=== PATIENT | male | born 1985 | race Caucasian/White ===

== ENCOUNTER 2016-04-10 09:05 | Emergency (ER) | payer SELFPAY ==
[2016-04-10 09:17] VITALS: BP 133/84
[2016-04-10] MEDS ORDERED: NEOMY SULF/POLYMYX B SULF/HC OTIC SUSP 10 ML AU ONE (09:39)
[2016-04-10] MEDS ORDERED: DEXAMETHASONE 4 MG TABLET PO ONE (09:40)
[2016-04-10] MEDS ORDERED: ALBUTEROL SULFATE HFA (90 MCG/PUFF) 8 GM MDI (1 MDI/ER DISP) IH ONE (09:40)
--- NOTE | 2016-04-10 09:43 | ER Document Report ---
ED General - General Chief Complaint: Drainage from Ear Stated Complaint: EAR PAIN TRAVEL OUTSIDE OF THE [place] IN LAST 30 DAYS: No - HPI Patient complains to provider of: bilateral ear drainage Notes: Patient coming in for evaluation of bilateral ear drainage ongoing for last 3-4 days. Patient denies any history swimming or submerging his head. Patient denies fevers chills nausea vomiting sore throat. Patient denies any recent antibiotic use denies any ear canal trauma denies using Q-tips states he has been putting peroxide in his ears. - Related Data Allergies/Adverse Reactions: cefaclor [From Ceclor] Allergy (Verified 04/10/16 09:14) Past Medical History - Social History Smoking Status: Current Every Day Smoker Chew tobacco use (# tins/day): No Frequency of alcohol use: None Drug Abuse: None Family History: Reviewed & Not Pertinent Patient has suicidal ideation: No Patient has homicidal ideation: No Renal/ Medical History: Denies: Hx Peritoneal Dialysis Review of Systems - Review of Systems Constitutional: No symptoms reported EENT: Ear discharge Cardiovascular: No symptoms reported Respiratory: No symptoms reported Gastrointestinal: No symptoms reported Genitourinary: No symptoms reported Male Genitourinary: No symptoms reported Musculoskeletal: No symptoms reported Skin: No symptoms reported Hematologic/Lymphatic: No symptoms reported Neurological/Psychological: No symptoms reported -: Yes All other systems reviewed and negative Physical Exam - Vital signs Vitals: Temp Pulse Resp BP Pulse Ox 98.2 F 93 18 133/84 H 99 04/10/16 09:15 04/10/16 09:15 04/10/16 09:15 04/10/16 09:15 04/10/16 09:15 Interpretation: Normal - General General appearance: Appears well, Alert - HEENT Head: Normocephalic, Atraumatic Eyes: Normal Conjunctiva: Normal Cornea: Normal Extraocular movements intact: Yes Eyelashes: Normal Pupils: PERRL Ears: Normal External canal: Other - Bilateral. No drainage Tympanic membrane: Normal Sinus: Normal Nasal: Normal Pharynx: Normal Neck: Normal - Respiratory Respiratory status: No respiratory distress Chest status: Nontender Breath sounds: Normal Chest palpation: Normal - Cardiovascular Rhythm: Regular Heart sounds: Normal auscultation Murmur: No - Abdominal Inspection: Normal Distension: No distension Bowel sounds: Normal Tenderness: Nontender Organomegaly: No organomegaly - Back Back: Normal, Nontender - Extremities General upper extremity: Normal inspection, Nontender, Normal color, Normal ROM , Normal temperature General lower extremity: Normal inspection, Nontender, Normal color, Normal ROM , Normal temperature, Normal weight bearing. No: Milton's sign - Neurological Neuro grossly intact: Yes Cognition: Normal Orientation: AAOx4 Grisel Coma Scale Eye Opening: Spontaneous Grisel Coma Scale Verbal: Oriented Grisel Coma Scale Motor: Obeys Commands [place] Coma Scale Total: 15 Speech: Normal Motor strength normal: LUE, RUE, LLE, RLE Sensory: Normal - Psychological Associated symptoms: Normal affect, Normal mood - Skin Skin Temperature: Warm Skin Moisture: Dry Skin Color: Normal Course - Re-evaluation Re-evalutation: 04/10/16 14:27 Patient presents with bilateral otitis externa. Patient will be discharged home - Vital Signs Vital signs: Temp Pulse Resp BP Pulse Ox 98.2 F 93 18 133/84 H 99 04/10/16 09:15 04/10/16 09:15 04/10/16 09:30 04/10/16 09:15 04/10/16 09:15 Discharge - Discharge Clinical Impression: Tobacco use, Wheezing Bilateral otitis externa Qualifiers: Otitis externa type: unspecified type Chronicity: acute Qualified Code(s): H60.503 - Unspecified acute noninfective otitis externa, bilateral Condition: Good Disposition: HOME, SELF-CARE Instructions: Using Ear Drops with a Wick ([facility]), Use of Ear Drops ([facility]), Otitis Externa ([facility]) Additional Instructions: Examination today is consistent with swimmer's ear are otitis externa. We will prescribe you antibiotic drops to aid in your symptoms. Please put 4 drops in each ear 3 times a day for the next 10 days. We will try to place a wick in your ear. If this falls out he may just use a cotton ball and still drops while lying on your side. Please stop smoking. Your lung examination today shows bilateral wheezes more likely due to your smoking use. The steroid that we gave you here in ER will help out with your ear pain will help out with your frontal head pain. Will also help out with your wheezing. Please use the inhaler 2 puffs every 4 hours as needed for shortness of breath and wheezing Please stop smoking Forms: Smoking Cessation Education
== END 2016-04-10 10:34 | disposition home or self-care (01) ==
LOC: ER 09:05
DX: H60.503 Unspecified acute noninfective otitis externa, bilateral (principal); R06.2 Wheezing; H92.13 Otorrhea, bilateral; F17.210 Nicotine dependence, cigarettes, uncomplicated
CPT/HCPCS: 99282; J3490 ×2

== ENCOUNTER 2016-07-26 19:32 | Emergency (ER) | payer SELFPAY ==
[2016-07-26] MEDS ORDERED: CLONIDINE 0.1 MG/24 HR PATCH.TDWK TD ONE (23:07)
[2016-07-26] MEDS ORDERED: ONDANSETRON ODT 4 MG TAB (6 TAB/DSPK) PO PRN (23:07)
[2016-07-26] MEDS ORDERED: GABAPENTIN 300 MG CAPSULE PO ONE (23:07)
--- NOTE | 2016-07-26 23:09 | ER Document Report ---
ED General - General Chief Complaint: Drug Abuse Stated Complaint: DRUG ADDICTION Time Seen by Provider: 07/26/16 21:07 Notes: Patient is a 31-year-old male no past medical history who presents seeking assistance with detox from heroin and alcohol. Last use was 24 hours ago. He denies any acute medical concerns states he is looking for assistance with withdrawal symptoms. Notes that he has had nausea, vomiting, diaphoresis, chills and frequent yawning. Nothing improves or worsens his symptoms. He has not seen a primary care doctor outpatient specialist regarding these concerns. Denies any suicidal or homicidal ideation. He has never tried to withdraw from these substances in the past. Denies any hallucinations, confusion or seizures. TRAVEL OUTSIDE OF THE [place] IN LAST 30 DAYS: No - Related Data Allergies/Adverse Reactions: [facility] Allergy (Verified 04/10/16 09:14) Past Medical History - General Information source: Patient - Social History Smoking Status: Current Every Day Smoker Frequency of alcohol use: Heavy Drug Abuse: Heroin Lives with: Spouse/Significant other Family History: Reviewed & Not Pertinent Patient has suicidal ideation: No Patient has homicidal ideation: No Renal/ Medical History: Denies: Hx Peritoneal Dialysis Review of Systems - Review of Systems Notes: Constitutional: Negative for fever. HENT: Negative for sore throat. Eyes: Negative for visual changes. Cardiovascular: Negative for chest pain. Respiratory: Negative for shortness of breath. Gastrointestinal: Negative for abdominal pain, positive for nausea and vomiting Genitourinary: Negative for dysuria. Musculoskeletal: Negative for back pain. Skin: Negative for rash. Neurological: Negative for headaches, weakness or numbness. 10 point ROS negative except as marked above and in HPI. Physical Exam - Vital signs Vitals: Temp Pulse Resp BP Pulse Ox 98.2 F 88 20 131/71 H 99 07/26/16 19:36 07/26/16 19:36 07/26/16 19:36 07/26/16 19:36 07/26/16 19:36 Interpretation: Normal Notes: PHYSICAL EXAMINATION: GENERAL: Well-appearing, well-nourished and in no acute distress. HEAD: Atraumatic, normocephalic. EYES: Pupils equal round and reactive to light, extraocular movements intact, sclera anicteric, conjunctiva are normal. ENT: nares patent, oropharynx clear without exudates. Moist mucous membranes. NECK: Normal range of motion, supple without lymphadenopathy LUNGS: Breath sounds clear to auscultation bilaterally and equal. No wheezes rales or rhonchi. HEART: Regular rate and rhythm without murmurs ABDOMEN: Soft, nontender, normoactive bowel sounds. No guarding, no rebound. No masses appreciated. EXTREMITIES: Normal range of motion, no pitting or edema. No cyanosis. NEUROLOGICAL: No focal neurological deficits. Moves all extremities spontaneously and on command. PSYCH: Normal mood, normal affect. SKIN: Warm, Dry, normal turgor, no rashes or lesions noted. Course - Re-evaluation Re-evalutation: 07/27/16 03:01 Patient presents with concerns of withdrawal symptoms of both alcohol and opiates. Vitals within normal limits, exam unremarkable. No acute life- threatening pathology suspects on today's evaluation. Will start on clonidine, gabapentin and Zofran to assist with withdrawal symptoms and have encouraged the patient to follow-up with outpatient resources for long-term management of his polysubstance abuse. At this time will discharge with return precautions and follow-up recommendations. Verbal discharge instructions given a the bedside and opportunity for questions given. Medication warnings reviewed. Patient is in agreement with this plan and has verbalized understanding of return precautions and the need for primary care follow-up in the next 24-72 hours. - Vital Signs Vital signs: Temp Pulse Resp BP Pulse Ox 98.4 F 81 18 135/69 H 99 07/26/16 23:20 07/26/16 23:20 07/26/16 23:20 07/26/16 23:20 07/26/16 23:20 Discharge - Discharge Clinical Impression: Polysubstance abuse Condition: Good Disposition: HOME, SELF-CARE Additional Instructions: Please follow-up with 1 of the provided resources as soon as possible to begin your drug rehabilitation program. Keep the clonidine patch on for the next 3 days. Remove it if you become lightheaded or have episodes refill you might pass out. Take the gabapentin 3 times daily as needed for withdrawal symptoms. You can take the Zofran as needed for nausea. Prescriptions: Gabapentin 300 mg PO TID PRN #21 capsule PRN Reason: Ondansetron [Zofran Odt 4 mg Tablet] 1 - 2 tab PO Q4H PRN #15 tab.rapdis PRN Reason: For Nausea/Vomiting
[2016-07-26 23:45] VITALS: BP 135/69
== END 2016-07-26 23:20 | disposition home or self-care (01) ==
LOC: ER 19:32
DX: F19.10 Other psychoactive substance abuse, uncomplicated (principal); R11.2 Nausea with vomiting, unspecified; F17.200 Nicotine dependence, unspecified, uncomplicated
CPT/HCPCS: 99283; J3490

== ENCOUNTER → 2016-08-14 | Outpatient (CLI) | payer SELFPAY ==
[2016-08-14 16:30] LABS: APPEARANCE,URINE CLEAR; BILIRUBIN,URINE NEGATIVE (NEGATIVE); GLUCOSE, URINE NEGATIVE (NEGATIVE); KETONES,URINE NEGATIVE (NEGATIVE); LEUKOCYTE ESTERASE,URINE NEGATIVE (NEGATIVE); NITRITE,URINE NEGATIVE (NEGATIVE); PROTEIN,URINE NEGATIVE (NEGATIVE); URINE SPECIFIC GRAVITY 1.013; UROBILINOGEN,URINE NEGATIVE mg/dL (<2.0)
[2016-08-14 16:31] LABS: ABSOLUTE LYMPHOCYTES (AUTO) 1.4 10^3/uL (0.5-4.7); ABSOLUTE MONOCYTES (AUTO) 0.4 10^3/uL (0.1-1.4); ABSOLUTE NEUT (AUTO) 7.6 10^3/uL (1.7-8.2); BASOPHILS % (AUTO) 0.2 % (0-2); EOSINOPHILS % (AUTO) 0.5 % (0-6); HEMATOCRIT 42.2 % (37.9-51.0); HEMOGLOBIN 14.3 g/dL (13.5-17.0); HGB HCT DIFFERENCE 0.7; LYMPHOCYTES % (AUTO) 15.1 % (13-45); MEAN CORPUSCULAR HEMOGLOBIN 30.2 pg (27.0-33.4); MEAN CORPUSCULAR VOLUME 89 fl (80-97); MONOCYTES % (AUTO) 4.5 % (3-13); RED BLOOD COUNT 4.75 10^6/uL (4.35-5.55); RED CELL DISTRIBUTION WIDTH 12.7 % (11.5-14.0); SEGMENTED NEUTROPHILS % (AUTO) 79.7 % (42-78); WHITE BLOOD COUNT 9.5 10^3/uL (4.0-10.5)
[2016-08-14 16:51] LABS: ALANINE AMINOTRANSFERASE 27 U/L (21-72); ALKALINE PHOSPHATASE 69 U/L (38-126); ANION GAP 14 (5-19); ASPARTATE AMINO TRANSFERASE 22 U/L (17-59); BILIRUBIN,DIRECT 0.3 mg/dL (0.0-0.4); BILIRUBIN,TOTAL 0.8 mg/dL (0.2-1.3); BLOOD UREA NITROGEN 12 mg/dL (7-20); CALCIUM 10.2 mg/dL (8.4-10.2); CARBON DIOXIDE 29 mmol/L (22-30); CHLORIDE 98 mmol/L (98-107); CHOLESTEROL 191.65 mg/dL (0-200); CREATININE RESULT 0.83 mg/dL (0.52-1.25); Direct HDL 58 mg/dL (>40); GLUCOSE 128 mg/dL (75-110); POTASSIUM 4.6 mmol/L (3.6-5.0); SODIUM 140.6 mmol/L (137-145); TOTAL PROTEIN 8.1 g/dL (6.3-8.2); TRIGLYCERIDES 73 mg/dL (<150)
[2016-08-14 17:02] LABS: DIRECT LDL 112 mg/dL (<100)
[2016-08-14 17:08] LABS: FREE T3 4.11 pg/mL (2.77-5.27)
[2016-08-14 17:21] LABS: THYROID STIMULATING HORMONE 2.06 uIU/mL (0.47-4.68)
[2016-08-14 17:32] LABS: ADD HIVPANEL? NO; HIV (1 AND 2) ANTIBODY NEGATIVE (NEGATIVE)
[2016-08-17 08:40] LABS: HEPATITIS C VIRUS AB <0.1 s/co ratio (0.0-0.9)
[2016-08-17 09:07] LABS: PROLACTIN 11.9 ng/mL (4.0-15.2)
== END ==
LOC: OD 15:31
PROVIDERS: ATTEND Obstetrics & Gynecology Gynecology
DX: I10 Essential (primary) hypertension (principal); E16.2 Hypoglycemia, unspecified; N30.90 Cystitis, unspecified without hematuria; F11.20 Opioid dependence, uncomplicated; Z79.899 Other long term (current) drug therapy; Z20.6 Contact with and (suspected) exposure to human immunodeficiency virus [HIV]
CPT/HCPCS: 36415; 80053; 80061; 81001; 83036; 84146; 84439; 84443; 84481; 85025; 86592; 86701; 86803; 86804; 87340

== ENCOUNTER 2017-04-07 20:46 | Emergency (ER) | payer MEDICAID, OTHER ==
--- NOTE | 2017-04-07 23:04 | ER Document Report ---
HPI - HPI Patient complains to provider of: Right ear swelling Onset: Other - 2 weeks Onset/Duration: Persistent Quality of pain: Achy Pain Level: 4 Context: Patient complains of right ear swelling that he noticed when he woke up one morning 2 weeks ago. Patient states that he had time to get this evaluated tonight which prompted him to come in. Patient denies any trauma. Patient denies any fever. Associated Symptoms: Earache. denies: Fever Exacerbated by: Denies Relieved by: Denies Similar symptoms previously: No Recently seen / treated by doctor: No - ROS ROS below otherwise negative: Yes Systems Reviewed and Negative: Yes All other systems reviewed and negative - EENT EENT: REPORTS: Ear Pain - MUSCULOSKELETAL Musculoskeletal: DENIES: Neck Pain - DERM Skin Color: Normal Past Medical History - General Information source: Patient - Social History Smoking Status: Current Every Day Smoker Frequency of alcohol use: Heavy Drug Abuse: None Occupation: Car detailing Lives with: Spouse/Significant other Family History: Reviewed & Not Pertinent Patient has suicidal ideation: No Patient has homicidal ideation: No - Medical History Medical History: Negative Renal/ Medical History: Denies: Hx Peritoneal Dialysis Surgical Hx: Negative Vertical Provider Document - CONSTITUTIONAL Agree With Documented VS: Yes Exam Limitations: No Limitations General Appearance: WD/WN, No Apparent Distress - INFECTION CONTROL TRAVEL OUTSIDE OF THE [place] IN LAST 30 DAYS: No - HEENT HEENT: Normocephalic Notes: swollen area to helix of right ear, area soft, fluctuant. Normal skin color and temperature. No mastoid tenderness or swelling - NECK Neck: Normal Inspection - RESPIRATORY Respiratory: Breath Sounds Normal, No Respiratory Distress O2 Sat by Pulse Oximetry: 98 - CARDIOVASCULAR Cardiovascular: Regular Rate, Regular Rhythm - MUSCULOSKELETAL/EXTREMETIES Musculoskeletal/Extremeties: MAEW - NEURO Level of Consciousness: Awake, Alert, Appropriate Motor/Sensory: No Motor Deficit - DERM Integumentary: Warm, Dry. negative: Abscess Course - Re-evaluation Re-evalutation: 04/07/17 23:[address] Griffith regarding patient management. Recommends needle aspiration of area in treating like a auricular hematoma 04/08/17 Serosanguineous fluid aspirated from right ear. Swelling immediately resolved. Patient tolerated procedure well. Compression ear dressing placed. Discussed worsening symptoms that patient should return immediately for. Patient verbalized understanding and agrees with plan of care. Patient advised that he will likely have your disfigurement due to the length of time that he allow the swelling to remain. - Vital Signs Vital signs: Temp Pulse Resp BP Pulse Ox 98.6 F 79 138/77 H 98 04/07/17 21:14 04/07/17 21:14 04/07/17 21:14 04/07/17 21:14 Procedures - Incision and Drainage Right Head Type: Simple I&D procedure: Betadine prep applied Incision Method: Incision made with needle Amount/type of drainage: Serous, bloody drainage aspirated from right helix Adult Head Front/Back picture: 1 - 1x2.5 cm fluctuant area to right ear Discharge - Discharge Clinical Impression: Encounter for incision and drainage procedure Ear hematoma, right Qualifiers: Encounter type: initial encounter Qualified Code(s): S00.431A - Contusion of right ear, initial encounter Condition: Stable Disposition: HOME, SELF-CARE Instructions: Hematoma ([facility]) Additional Instructions: Return immediately for any new or worsening symptoms Followup with your primary care provider, call tomorrow to make a followup appointment Follow-up with ear nose and throat doctor for further evaluation. Wound culture is pending, we will call if you need any different treatment Referrals: [facility] [Provider Group] - 04/09/17
[2017-04-07 23:26] VITALS: BP 114/61
== END 2017-04-07 23:33 | disposition home or self-care (01) ==
LOC: ER 20:46
DX: H61.121 Hematoma of pinna, right ear (principal); X58.XXXA Exposure to other specified factors, initial encounter; F17.200 Nicotine dependence, unspecified, uncomplicated
CPT/HCPCS: 87070; 87205; 99283